=== PATIENT | female | born 1930 | race Caucasian/White ===

== ENCOUNTER 2022-02-16 11:37 | Day surgery (SDC) | payer MEDICARE, BC ==
[~2022-02-16] VITALS: Ht 154.9 cm; Wt 68.0 kg
[2022-02-16 09:45] VITALS: BP 175/83
[2022-02-16 10:19] LABS: BASOPHILS # (AUTO) 0.1 X10'3 (0-0.2); BASOPHILS % (AUTO) 1.3 % (0-1); EOSINOPHILS # (AUTO) 0.1 X10'3 (0-0.9); HEMATOCRIT 40.5 % (35.0-45.0); HEMOGLOBIN 13.9 g/dl (12.0-16.0); LYMPHOCYTES # (AUTO) 1.6 X10'3 (1.1-4.8); LYMPHOCYTES % (AUTO) 26.4 % (21-51); MEAN CORPUSCULAR HEMOGLOBIN 30.4 PG (27.0-31.0); MEAN CORPUSCULAR HGB CONC 34.3 g/dL (33.0-36.5); MEAN CORPUSCULAR VOLUME 88.5 FL (78-98); MEAN PLATELET VOLUME 6.7 FL (7.4-10.4); MONOCYTES # (AUTO) 0.5 X10'3 (0-0.9); MONOCYTES % (AUTO) 8.7 % (2-12); NEUTROPHILS # (AUTO) 3.7 X10'3 (1.8-7.7); NEUTROPHILS % (AUTO) 61.6 % (42-75); PLATELET COUNT 180 X10'3 (140-440); RED BLOOD COUNT 4.57 X10'6 (4.20-5.60); RED CELL DISTRIBUTION WIDTH 14.3 % (11.5-14.5)
[2022-02-16 10:23] LABS: ALBUMIN 3.7 G/DL (3.4-5.0); ANION GAP 7 (8-16); BLOOD UREA NITROGEN 13 MG/DL (7-18); BUN/CREATININE RATIO 15.7 (6.6-38.0); CALCIUM 9.2 MG/DL (8.5-10.1); CHLORIDE 102 MMOL/L (99-107); CREATININE 0.83 MG/DL (0.40-0.90); GLUCOSE 96 MG/DL (70-104); MAGNESIUM 1.8 MG/DL (1.5-2.4); POTASSIUM 3.8 MMOL/L (3.5-5.1); SODIUM 133 MMOL/L (135-145); TOTAL CARBON DIOXIDE 24.5 MMOL/L (24-32); eGFR 65 ML/MIN
[~2022-02-16 11:37] MED LIST: CHOL400T57 PO; GLUC-95 PO; LACT1CAP75 PO; LIDOCAINE 2% w/EPI 1:100:000 30mL injection MDV**cath lab 1 only ONE; OSC500T PO; ZINC100T2 PO; ceFAZolin inj. 2,000 MG in dextrose 5%-water 100 ML IV ONE; fentaNYL/PF 50MCG/1 ML 2ML syringe ONE; midazolam 1 mg/ML 2ml injection ONE; normal saline 1000ml 1,000 ML IV SCH; vancomycin 1,000mg inj ONE; vancomycin/NS 1 GM in NS 250 ML IV ONE
[2022-02-16 11:50] VITALS: BP 142/67
[2022-02-16] MEDS ORDERED: normal saline 1000ml 400 ML IV SCH (12:01)
[2022-02-16 12:05] VITALS: BP 154/65
[2022-02-16 12:20] VITALS: BP 144/64
[2022-02-16 12:35] VITALS: BP 153/75
[2022-02-16 13:05] VITALS: BP 151/69
== END 2022-02-16 13:35 | disposition home or self-care (01) ==
LOC: SSTAY O 11:37
PROVIDERS: ATTEND Internal Medicine Cardiovascular Disease
DX: Z45.010 Encounter for checking and testing of cardiac pacemaker pulse generator [battery] (principal); I49.5 Sick sinus syndrome; I35.0 Nonrheumatic aortic (valve) stenosis; I25.10 Atherosclerotic heart disease of native coronary artery without angina pectoris; Z79.899 Other long term (current) drug therapy
CPT/HCPCS: 33228; 36415; 80048; 83735; 85025; 85610; 93005; 99152; 99153; C1785; J0690; J2250; J3010; J3370; J3490; J7030; J7060; A6258